=== PATIENT | male | born 1970 | race Two or more races ===

== ENCOUNTER 2018-10-27 14:38 | Outpatient (CLI) | payer OTHER ==
[~2018-10-27 14:38] MED LIST: AVAPRO150 MG; CEFUROXIME250 MG PO; DOLOGESIC 500-1 EACH PO; MECLIZINE HCL25 MG PO; PNEU16DI2; PRAVASTATIN SOD40 MG; TOPROL XL50 M1; TRILIPIX135 MG
== END 2018-10-27 14:49 | disposition home or self-care (01) ==
LOC: RAD 501 14:38
DX: M25.561 Pain in right knee (principal)